=== PATIENT | female | born 1940 | race Caucasian/White ===

== ENCOUNTER → 2018-06-06 | Outpatient (CLI) | payer MEDICARE, OTHER ==
[~2018-06-06] MED LIST: AMLO10TA2 PO; ASCO-96 PO; CALC-451 PO; CALC625T23 PO; CHOL100012 PO; DOCU100T6 PO; ESTR2TAB PO; KRIL500C PO; MELO15TA24 PO; MULTIVITAMIN PO; NEBI5TAB2 PO; OLME1TAB44 PO; OMEP-110 PO; SIMV10TA3 PO; [UNRECOGNIZED DRUG - OTHER] PO
[2018-06-06 10:17] LABS: ALANINE AMINOTRANSFERASE 18 U/L (12-78); ALBUMIN 3.6 g/dL (3.4-5.0); ANION GAP 7 mmol/L (5-15); CALCIUM 8.8 mg/dL (8.5-10.1); CHLORIDE 106 mmol/L (98-107); CREATININE 1.24 mg/dL (0.55-1.02)
[2018-06-06 10:19] LABS: ALKALINE PHOSPHATASE 122 U/L (45-117); BILIRUBIN,TOTAL 0.3 mg/dL (0.2-1.0); TOTAL PROTEIN 7.4 g/dL (6.4-8.2)
== END | disposition home or self-care (01) ==
LOC: STAR 08:57
PROVIDERS: ATTEND Surgery
DX: Z01.818 Encounter for other preprocedural examination (principal); K82.8 Other specified diseases of gallbladder
CPT/HCPCS: 36415; 80053; 93005

== ENCOUNTER 2018-06-13 09:42 | Day surgery (SDC) | payer MEDICARE, OTHER ==
[~2018-06-13] VITALS: Ht 166.4 cm; Wt 96.0 kg
[2018-06-13 10:05] VITALS: BP 120/75
[2018-06-13] MEDS ORDERED: LACTATED RINGERS 1,000 ML IV SCH (10:08)
[2018-06-13] MEDS ORDERED: BUPIVACAINE/PF 0.5% ONE (11:09)
[2018-06-13] MEDS ORDERED: EPINEPHRINE 1 MG/ML, 1ML ONE (11:09)
[2018-06-13] MEDS ORDERED: FENTANYL PF 250 MCG/5ML ONE (11:41)
[2018-06-13] MEDS ORDERED: MIDAZOLAM 1 MG/ML, 2ML ONE (11:54)
[2018-06-13] MEDS ORDERED: PROPOFOL 10 MG/ML, 20ML ONE (12:03)
[2018-06-13] MEDS ORDERED: ONDANSETRON 2MG/ML, 2ML ONE (12:03)
[2018-06-13] MEDS ORDERED: CEFAZOLIN 1,000 MG ONE (12:03)
[2018-06-13] MEDS ORDERED: SUCCINYLCHOLINE 20 MG/ML, 10ML ONE (12:12)
[2018-06-13] MEDS ORDERED: ROCURONIUM 10MG/ML,5ML ONE (12:12)
[2018-06-13] MEDS ORDERED: DEXAMETHASONE 4 MG/ML, 1ML ONE (12:30)
[2018-06-13] MEDS ORDERED: GLYCOPYRROLATE 0.4 MG/2 ML, 2ML ONE (12:30)
[2018-06-13] MEDS ORDERED: OXYcodone 5 MG/5 ML ORAL.SOL UDC ONE (12:58)
[2018-06-13] MEDS ORDERED: PROMETHAZINE 25 MG SUPP PR PRN (13:00)
[2018-06-13] MEDS ORDERED: LABETALOL 5MG/ML, 20ML IV PRN (13:00)
[2018-06-13] MEDS ORDERED: PROMETHAZINE 25 MG/ML, 1ML IV PRN (13:00)
[2018-06-13] MEDS ORDERED: FENTANYL PF 100 MCG/2ML IV PRN (13:00)
[2018-06-13] MEDS ORDERED: PROMETHAZINE 12.5 MG SUPP PR PRN (13:00)
[2018-06-13] MEDS ORDERED: MIDAZOLAM 1 MG/ML, 2ML IV PRN (13:00)
[2018-06-13] MEDS ORDERED: EPHEDRINE 50 MG/ML, 1ML IM PRN (13:00)
[2018-06-13] MEDS ORDERED: OXYcodone 5 MG/5 ML ORAL.SOL UDC PO PRN (13:00)
[2018-06-13] MEDS ORDERED: ONDANSETRON ODT 8 MG PO PRN (13:00)
[2018-06-13] MEDS ORDERED: MORPHINE SULFATE 4 MG/ML, 1ML IVPush PRN (13:00)
[2018-06-13] MEDS ORDERED: ACETAMINOPHEN 325 MG TABLET PO PRN (13:00)
[2018-06-13] MEDS ORDERED: EPHEDRINE 50 MG/ML, 1ML IVPush PRN (13:00)
[2018-06-13] MEDS ORDERED: DIPHENHYDRAMINE 50 MG/ML, 1ML IVPush PRN (13:00)
== END 2018-06-13 15:45 | disposition home or self-care (01) ==
LOC: OUT 09:42
PROVIDERS: ATTEND Surgery
DX: K81.1 Chronic cholecystitis (principal); I10 Essential (primary) hypertension; E78.5 Hyperlipidemia, unspecified; K21.9 Gastro-esophageal reflux disease without esophagitis; Z79.899 Other long term (current) drug therapy; Z98.890 Other specified postprocedural states; Z90.710 Acquired absence of both cervix and uterus
CPT/HCPCS: 47562; 88304; J0171; J0330; J0690; J1100; J2250; J2405; J2704; J3010; J3490; J7120